=== PATIENT | female | born 1955 | race Caucasian/White ===

== ENCOUNTER 2017-03-21 08:20 | Day surgery (SDC) | payer BC ==
[2017-03-20 11:01] VITALS: Ht 170.2 cm; Wt 53.0 kg
[~2017-03-21] VITALS: Ht 170.2 cm; Wt 53.0 kg
[2017-03-21] VITALS (15 sets, daily range): BP systolic 106–133; BP diastolic 65–84; PULSE 55–68; RESP 13–20
[2017-03-21] MEDS ORDERED: FENTAnyl 50 MCG/ML VIAL ONE (09:20)
[2017-03-21] MEDS ORDERED: METOCLOPRAMIDE 10 MG INJ ONE (09:20)
[2017-03-21] MEDS ORDERED: PROPOFOL 20 ML ONE (09:20)
[2017-03-21] MEDS ORDERED: SUCCINYLCHOLINE CHLORIDE 100 MG/5 ML SYG IV ONE (09:20)
[2017-03-21] MEDS ORDERED: ONDANSETRON 4 MG INJ ONE (09:20)
[2017-03-21] MEDS ORDERED: ROCURONIUM 50 MG INJ ONE (09:20)
[2017-03-21] MEDS ORDERED: CIPROFLOXACIN 400MG/D5W 200 ML ONE (09:29)
[2017-03-21] MEDS ORDERED: ONDANSETRON 4 MG INJ IV PRN (09:30)
[2017-03-21] MEDS ORDERED: FENTAnyl 50 MCG/ML VIAL IV PRN ×2 (09:30)
[2017-03-21] MEDS ORDERED: MEPERIDINE 25 MG INJ IV PRN (09:30)
[2017-03-21] MEDS ORDERED: HYDROmorphONE (0.2 MG/ML) 10ML SYG IV PRN ×3 (09:30)
--- NOTE | 2017-03-21 10:39 | PREOPHP ---
DATE OF ADMISSION: 03/21/2017 HISTORY OF PRESENT ILLNESS: Naya is a 62-year-old female who underwent a hysterectomy in the end of 2015. During this time, an ultrasound was obtained, which demonstrated a bladder lesion. Brenna g the summertime she had gross hematuria. She is a smoker. Cystoscopy in the office demonstrates o n the right lateral wall, a large papillary tumor with multiple satellite tumors on the posterior wa ll and on the right hemitrigone. The ureteral orifices have been unable to be visualized. The alexa ent presents today for cystoscopy, transurethral resection of bladder tumor, possible retrograde iliana logram, insertion of ureteral stent, possible instillation of mitomycin. PAST MEDICAL HISTORY: None. PAST SURGICAL HISTORY: Hysterectomy. SOCIAL HISTORY: The patient smokes a half a pack per day. ALLERGIES: NO KNOWN ALLERGIES. MEDICATIONS: She does not take any medications. PHYSICAL EXAMINATION: LUNGS: Good breath sounds bilaterally. HEART: Regular rate and rhythm. ABDOMEN: Soft, nondistended, nontender. No palpable masses. FLANK: No CVA tenderness. No masses. IMPRESSION: Gross hematuria, bladder cancer. PLAN: Cystoscopy, transurethral resection of bladder tumor, possible retrograde pyelogram, insertio n of stent. How the procedure is performed, potential complications have additionally been reviewed . My concern that she has a large amount of tumor burden and that this has an increased risk for bl adder perforation which can require a secondary procedure, open procedure, spreading of cancer have all been discussed. She understands that she is a high-risk patient for the above. She would like to proceed. In addition, we discussed about clot retention, pain, infection, potential for transfus ion, damage to surrounding organs as well as the ureter and urethra, urinary incontinence and anesth etic risks have all been discussed. She would like to proceed. Dictated By: BERNARD VILLALPANDO/JAVON Conf#: [id number] DID#: [id number]
--- NOTE | 2017-03-21 10:54 | PDOCDIS ---
Discharge Instructions DIAGNOSIS Discharge Diagnosis Bladder Cancer CONDITION Patient Condition: Good HOME CARE INSTRUCTIONS: Diet Instructions: Regular ACTIVITY: Activity Restrictions: Slowly Increase Activity FOLLOW UP/APPOINTMENTS Follow-up Plan Beginning of next week for removal of catheter. Do not remove catheter until evaluated in office next week. Call for time and date SCHOOL/WORK RELEASE May return to School/Work on: Apr 04, 2017 BERNARD MORGAN Mar 21, 2017 10:54
--- NOTE | 2017-03-21 10:59 | OPR ---
Date/Time of Note Date/Time of Note DATE: 03/21/17 TIME: 10:58 Operative Report Procedure Date: Mar 21, 2017 Preoperative Diagnosis bladder cancer Postoperative Diagnosis same Operation/Procedure Performed TURBT large bladder tumor and multiple satellite tumors Surgeon lauri Oracle R12 Developer none Anesthesia Type: general Estimated Blood Loss: none Transfusion none Specimen bladder tumor Grafts/Implants none Tubes/Drains [address] Complications none Pt Condition Post Procedure: stable Disposition: PACU Indications bladder cancer Procedure Description dictation [id number] BERNARD MORGAN Mar 21, 2017 10:59
--- NOTE | 2017-03-21 11:31 | OPR ---
DATE OF OPERATION: PREOPERATIVE DIAGNOSES: Gross hematuria and bladder cancer. POSTOPERATIVE DIAGNOSES: Gross hematuria and bladder cancer. OPERATION PERFORMED: Cystoscopy, transurethral resection of large bladder tumor and multiple satell ite bladder tumors, coagulation of bleeding points. SURGEON: Brad Benjamin MD. ANESTHESIA: General. COMPLICATIONS: None. FINDINGS: Large bladder tumor, right hemitrigone extending onto the posterior wall with a multitude of satellite bladder tumors. DRAINS: 20-Icelandic 2-way Sandoval catheter. BRIEF HISTORY: Naya is a 62-year-old female with gross hematuria and imaging demonstrating a john dder mass. She presents for cystoscopy, transurethral resection of bladder tumor. How the procedur e is performed, potential complications, side effects have been all reviewed. Increased risk for pe rforation due to the large volume of bladder cancer has additionally been discussed as well as the p otential for ureteral obstruction. She consents to the above. DESCRIPTION OF PROCEDURE: The patient was brought into the operating room and placed on the operati ng room table in the supine lithotomy position. She was prepped and draped in usual fashion after a nesthesia was induced. A timeout was undertaken. She received preoperative antibiotic therapy and sequential compression devices were applied. Rigid cystoscopy was undertaken with a 12-degree, 30-d egree and 70-degree angle lens. Initially, I was unable to see the right ureteral orifice secondary to a very large papillary tumor. The papillary tumor was noted to obscure the right hemitrigone. The left ureteral orifice was identified and preserved throughout the entire case. Seven satellite small bladder tumors were additionally noted on the left and right lateral wall as w ell as ultimately on the posterior wall. Utilizing the Busby resectoscope without cauterization, the large right bladder tumor was shaved off of the bladder wall. This was noted to be partially p apillary and other parts to be papillary yet less than 2 mm raised off of the bladder lining. The p apillary portions were shaved off without cauterization utilizing the Busby resectoscope. Pinpoi nt hemostasis was then obtained and the area was cauterized with approximately 5 cm in length being cauterized. At this point, it was noted that the base of the stalk of the tumor was approximately 1 cm posterior to the right ureteral orifice. The right ureteral orifice was well preserved througho ut the entire case. Efflux of urine was noted from both ureteral orifices. These 7 satellite small papillary tumors were both resected and then cauterized. Pinpoint hemostasis was obtained. Of not e, the patient has marked generalized friability of the bladder lining and with distention and empty ing of the bladder, oozing could be appreciated. Cauterization of specific blood vessels was undert aken. She is noted to have hypervascularization also. Pinpoint hemostasis was obtained. All tumor was removed with an [facility] evac[facility] and sent to pathology for further evaluation. A small amount o f oozing was noted from the bladder without any discrete point and thus a 2-way Sandoval catheter was i nserted. The catheter was irrigated. The efflux remained light pink. It was not felt that continu ous bladder irrigation would be required. Due to the significant amount of resection and cauterizat ion that was undertaken it was decided not to instill mitomycin. The catheter was left to gravity d rainage. She was transferred to recovery room in stable condition. She will follow up in the offic e next week for trial of void. She was discharged to home on [place] one tab p.o. q. 6 hour p.r .n., dispensed #40, no refill. Dictated By: BRAD VILLALPANDO/NTS Conf#: [id number] DID#: [id number]
== END 2017-03-21 12:59 | disposition home or self-care (01) ==
LOC: SDS 08:20
PROVIDERS: ATTEND Urology
DX: C67.9 Malignant neoplasm of bladder, unspecified (principal)
CPT/HCPCS: 52240; 88305; J0744; J2405; J2765; J3010; Z7512; Z7610

== ENCOUNTER 2018-02-06 08:02 | Day surgery (SDC) | END 2018-02-06 15:52 | disposition home or self-care (01) ==

== ENCOUNTER 2018-06-19 07:14 | Day surgery (SDC) | payer BC ==
[2018-06-17 14:57] VITALS: BMI 17.9
[2018-06-19] VITALS (16 sets, daily range): BP systolic 98–130; BP diastolic 69–78; PULSE 66–91; RESP 11–23; Ht 170.2 cm; Wt 52.3 kg
[~2018-06-19] VITALS: Ht 170.2 cm; Wt 52.3 kg
[~2018-06-19 07:14] MED LIST: CIPRO 400 MG/200 ML D5W IVPB ONE; SEVOFLURANE 15 MIN ONE
--- NOTE | 2018-06-19 08:12 | HPN ---
Date/Time of Note Date/Time of Note DATE: 06/19/18 TIME: 08:12 Interval H&P Admission Note Pt. seen H&P reviewed: No system changes BERNARD MORGAN Jun 19, 2018 08:12
[2018-06-19] MEDS ORDERED: MITOMYCIN 40 MG VIAL IS ONE (08:30)
[2018-06-19] MEDS ORDERED: LIDOCAINE 2% (SDV) 5 ML INJ ONE (08:42)
[2018-06-19] MEDS ORDERED: ROCURONIUM 50 MG INJ ONE (08:42)
[2018-06-19] MEDS ORDERED: PROPOFOL 20 ML ONE (08:42)
[2018-06-19] MEDS ORDERED: NEOSTIGMINE 3 MG/3 ML SYRINGE ONE (08:42)
[2018-06-19] MEDS ORDERED: GLYCOPYRROLATE 0.4 MG INJ ONE (08:42)
[2018-06-19] MEDS ORDERED: DEXAMETHASONE 4 MG/ML 5 ML INJ ONE (08:43)
[2018-06-19] MEDS ORDERED: FENTAnyl 50 MCG/ML VIAL ONE ×2 (08:43→11:11)
[2018-06-19] MEDS ORDERED: MIDAZOLAM 1 MG/ML 2 ML INJ ONE (08:43)
[2018-06-19] MEDS ORDERED: ONDANSETRON 4 MG INJ ONE ×3 (08:44→11:41)
--- NOTE | 2018-06-19 09:42 | PREAC ---
Date/Time of Note Date/Time of Note DATE: 06/19/18 TIME: 09:39 Anesthesia Eval and Record Evaluation Time Pre-Procedure Interview DATE: 06/19/18 TIME: 09:39 Age 63 Sex female NPO: 8 hrs Preoperative diagnosis Bladder CA Planned procedure Cystoscopy TURBT Past Medical History Past Medical History: Includes Cardio: Dyslipidemia Endo: Other Pulm: Other Neuro: Other Musculoskeletal: Other Renal: Other Hepatic: Other GI: Other Heme: Other Psych: Other Infection(s): Other : Other Surgery & Anesthesia Issues Aspiration risk Meds Anticoagulation: No Beta Hiro within 24 hr: No Reason Beta Hiro not given: Pt. not on B-Hiro No Active Prescriptions or Reported Meds Current Medications Influenza Virus Vaccine Quadrival (Fluzone) 0.5 ml ONCE ONCE IM* ; Start 06/20/18 at 09:00; Stop 06/20/18 at 09:01 Meds reviewed: Yes Allergies Coded Allergies: No Known Allergy (Unverified , 06/19/18) Allergies Reviewed: Yes Labs/Studies Labs Reviewed: Reviewed by anesthesiologist test: N/A Studies: ECG, CXR Pre-procedure Exam Last vitals Vital Signs Date Temp Pulse Resp B/P (MAP) Pulse Ox O2 O2 Flow FiO2 Time Delivery Rate 06/19/18 98.0 91 16 98/69 (79) 97 07:50 Airway: Adequate mouth opening Mallampati: Mallampati I Teeth: Normal Lung: Normal Heart: Abnormal Anticipated Difficutly with IV: Anticipate Difficult IV Access ASA Physical Status ASA physical status: 1 Emergency: None Planned Anesthetic General/MAC: ETT Neuraxial: Other Nerve block: Other Planned Pain Management Parenteral pain med Pre-operative Attestations Prior to commencing anesthesia and surgery, the patient was re-evaluated, there was verification of: *The patient's identity *The results of appropriate recent lab work and preoperative vital signs *The above evaluation not changing prior to induction *Anesthetic plan, risk benefits, alternative and complications discussed with patient/family; questions answered; patient/family understands, accepts and wishes to proceed. JESSICA TREVINO MD Jun 19, 2018 09:42
--- NOTE | 2018-06-19 11:11 | PDOCDIS ---
Discharge Instructions DIAGNOSIS Discharge Diagnosis Bladder Cancer CONDITION Ricardo Patient Condition: Jean Carlos Fair HOME CARE INSTRUCTIONS: Ricardo Diet Instructions: Jean Carlos Regular ACTIVITY: Ricardo Activity Restrictions: Jean Carlos Slowly Increase Activity Ricardo Bathing Restrictions: Jean Carlos Shower FOLLOW UP/APPOINTMENTS Follow-up Plan Follow up in office for removal of torres,call for date and time, ask for Madai or Felicitas REFERRALS Ricardo Referring Provider: BERNARD Pacheco EVAN Jun 19, 2018 11:11
--- NOTE | 2018-06-19 11:14 | OPR ---
Date/Time of Note Date/Time of Note DATE: 06/19/18 TIME: 11:12 Operative Report Procedure Date: Jun 19, 2018 Preoperative Diagnosis Bladder Cancer Postoperative Diagnosis Same Operation/Procedure Performed TURBT large bladder tumor burden, morew than 80 tumors and instillation of Mitomycin Surgeon lauri Apprentice/Lineman none Anesthesia Type: general Estimated Blood Loss: none Transfusion none Specimen bladder tumor Grafts/Implants none Tubes/Drains [address] Complications none Pt Condition Post Procedure: stable Disposition: PACU Indications bladder cancer Procedure Description dict [id number] BERNARD MORGAN Jun 19, 2018 11:14
[2018-06-19] MEDS ORDERED: BELLADONNA ALK/OPIUM SUPP PR ONE (11:30)
--- NOTE | 2018-06-19 11:57 | OPR ---
DATE OF OPERATION: 06/19/2018 PREOPERATIVE DIAGNOSIS: Recurrent and extensive bladder cancer. POSTOPERATIVE DIAGNOSIS: Recurrent and extensive bladder cancer. OPERATION PERFORMED: Cystoscopy, transurethral resection and coagulation of extensive bladder cancer with more than 80 bladder tumors and instillation of mitomycin. SURGEON: Bernard Benjamin MD. ANESTHESIA: General. COMPLICATIONS: None. FINDINGS: Extensive bladder cancer. DRAINS: A 20-Kosovan 2-way Sandoval catheter. DESCRIPTION OF PROCEDURE: The patient was brought into the operating room and placed on the operatin g room table in the supine lithotomy position. She was prepped and draped in the usual fashion after anesthesia was induced. A timeout was undertaken. Appropriate pressure points were padded. She re ceived preoperative antibiotic therapy and sequential compression devices were applied. Rigid cystos copy was undertaken with a rigid cystoscope. No abnormalities of the urethra could be appreciated. Bilateral ureteral orifices within normal limits. A massive field defect of the entire bladder linin g is appreciated with innumerable papillary bladder tumors being appreciated on all rosa of the blad abiodun, encompassing the trigone, left and right lateral wall, posterior wall and dome of bladder. Huong ral of these tumors were excised and sent to pathology for permanent evaluation. Pinpoint hemostasis was obtained. The vast majority of these tumors were coagulated down to the bladder lining so as to preserve the bladder wall and allow for installation of mitomycin. Utilizing the Bugbee more than 8 0 bladder tumors were coagulated down to the bladder wall with pinpoint hemostasis being obtained. A t no point was there any concern for perforation of the bladder wall. Of note, the patient does have a very thin bladder wall. Neovascularization feeding these multiple bladder tumors could be apprecia sang. After all tumor burden was removed, repeat endoscopic evaluation did not demonstrate any furthe r bladder tumor and thus a 2-way Sandoval catheter was inserted. A 20-Kosovan Sandoval catheter was inserte d and the efflux of fluid was noted to be crystal clear. The bladder was irrigated. No oozing could be appreciated. Under sterile technique with chemotherapy precautions 40 mg of mitomycin in and 40 m L was instilled into the bladder. The catheter was then clamped. A Sandoval catheter bag was then plac ed and she was transferred to recovery room in stable condition. She will retain the medication for a 40 minute period of time. Due to the extensive resection and instillation of mitomycin she will be discharged home with a Sandoval to leg bag. She will follow up in the office for a trial of void. She was given a prescription for Hermann 5/325 one tab p.o. q.6h. p.r.n., dispense #25, no refill. Furthe r intervention evaluation pending clinical course and results of . Dictated By: BERNARD VILLALPANDO/JAVON Conf#: [id number] DID#: [id number]
[2018-06-19] MEDS ORDERED: FENTAnyl 50 MCG/ML VIAL IV PRN ×2 (12:00)
[2018-06-19] MEDS ORDERED: HYDROmorphONE 1 MG/5 ML IV SYRINGE IV PRN ×2 (12:00)
[2018-06-19] MEDS ORDERED: MEPERIDINE 25 MG INJ IV PRN (12:00)
[2018-06-19] MEDS ORDERED: ONDANSETRON 4 MG INJ IV PRN (12:00)
[2018-06-19] MEDS ORDERED: HYDROCODONE/APAP (5/325) TAB PO ONE (14:00)
[2018-06-20] MEDS ORDERED: INFLUENZA VIRUS VACCINE 0.5 ML (DISPENSING) IM* ONE (09:00)
== END 2018-06-19 15:11 | disposition home or self-care (01) ==
LOC: SDS 07:14
PROVIDERS: ATTEND Urology
DX: C67.9 Malignant neoplasm of bladder, unspecified (principal); E78.5 Hyperlipidemia, unspecified
CPT/HCPCS: 52224; J1100; J2250; J2405; J2710; J3010; J9280; Z7512; Z7610; 88305; J0744